=== PATIENT | female | born 1965 | race American Indian/Alaskan Native ===

== ENCOUNTER 2018-02-03 12:20 | Emergency (ER) | payer MEDICAID | END 2018-02-03 12:21 | disposition left against medical advice (07) | LOC: ED 12:20 | DX: N93.9 Abnormal uterine and vaginal bleeding, unspecified (principal); Z53.21 Procedure and treatment not carried out due to patient leaving prior to being seen by health care provider ==

== ENCOUNTER 2018-02-17 12:45 | Emergency (ER) | payer MEDICAID ==
[2018-02-17] MEDS ORDERED: NACL 0.9% 500 ML 500 ML IV ONE (13:38)
[2018-02-17 14:24] LABS: Hematocrit 29.4 % (30.3-42.9); Hemoglobin 9.5 gm/dl (10.1-14.3); Mean Corpuscular HGB Conc 32 % (30-34); Mean Corpuscular Hemoglobin 29 pg (28-32); Mean Corpuscular Volume 91 fl (79-97); Platelet Count 316 K/mm3 (140-440); Red Blood Count 3.25 M/mm3 (3.65-5.03); Red Cell Distribution Width 16.6 % (13.2-15.2)
[2018-02-17 14:27] LABS: Alanine Aminotransferase 20 units/L (7-56); Albumin 1.5 g/dL (3.9-5); BUN/Creatinine Ratio 13; Blood Urea Nitrogen 13 mg/dL (7-17); Calcium 6.7 mg/dL (8.4-10.2); Hemolysis Index 10
[2018-02-17 14:34] LABS: INR 1.08 (0.87-1.13)
[2018-02-17] MEDS ORDERED: ZOFRAN IV ONE (14:57)
[2018-02-17] MEDS ORDERED: SUBLIMAZE IV ONE (14:57)
[2018-02-17] MEDS ORDERED: NACL 0.9% 1000 ML 1,000 ML IV ONE (14:57)
--- NOTE | 2018-02-17 15:11 | Emergency Department Report ---
HPI - General Chief Complaint: Weakness Time Seen by Provider: 02/17/18 14:49 - HPI HPI: Room 6 The patient is a 52-year-old female presenting with a chief complaint of passing stool from her vagina. The patient had a history of a right vulvar abscess status post I&D under general anesthesia by [employer] Dr. Olson 2017. The patient states she's had pain in the area since. The patient states for the past month she has noticed stool coming from her vagina. The patient states she's been unable to contact her [employer] Location: [See above] Duration: One month, see above Quality: Pain Severity: Moderate Modifying factors: [see above] Context: [see above] Mode of transportation: [not driving] ED Past Medical Hx - Past Medical History Hx Liver Disease: Yes Hx Sickle Cell Disease: (trait) Hx HIV: Yes Additional medical history: anemia, esophageal thrush - Surgical History Past Surgical History?: No - Family History Family history: no significant - Social History Smoking Status: Current Every Day Smoker Substance Use Type: None (denies illicit drug use) - Medications Home Medications: Home Medications Medication Instructions Recorded Confirmed Last Taken Type Amoxicillin/Potassium Clav 1 each PO Q12H #14 tablet 12/16/17 Unknown Rx [Augmentin 500-125 Tablet] Fluconazole [Diflucan TAB] 200 mg PO QDAY #12 tablet 12/16/17 Unknown Rx Nystas/Diphen/Xyl Visc/Mylanta 15 ml PO TID 30 Days oral.liqd 12/16/17 Unknown Rx [Magic Mouthwash] oxyCODONE /ACETAMINOPHEN [Percocet 1 tab PO Q4HR #12 tab 12/16/17 Unknown Rx 5/325] Diphenoxylate/Atropine [Lomotil] 2 tab PO QID PRN #10 tablet 02/17/18 Unknown Rx Fluconazole [Diflucan] 200 mg PO QDAY #14 tablet 02/17/18 Unknown Rx metroNIDAZOLE [Flagyl] 500 mg PO Q12HR #14 tab 02/17/18 Unknown Rx traMADol [Ultram] 50 mg PO Q6HR PRN #14 tablet 02/17/18 Unknown Rx ED Review of Systems ROS: Stated complaint: STOOL COMING OUT VAGINA Other details as noted in HPI Genitourinary: discharge Physical Exam - Physical Exam Vital Signs: Vital Signs 02/17/18 13:32 Temperature 98 F Pulse Rate 114 H Respiratory 16 Rate Blood Pressure 90/66 O2 Sat by Pulse 100 Oximetry Physical Exam: GENERAL: The patient is a thin cachectic appearing female lying on stretcher not appearing to be in acute distress HEENT: Normocephalic. Atraumatic. Extraocular motions are intact. Patient has moist mucous membranes. NECK: Supple. No meningitic signs are noted. Trachea midline CHEST/LUNGS: Clear to auscultation. There is no respiratory distress noted. HEART/CARDIOVASCULAR: Regular. There is no tachycardia. There is no gallop rub or murmur. ABDOMEN: Abdomen is soft, nontender. Patient has normal bowel sounds. There is no abdominal distention. SKIN: There is no rash. There is no edema. There is no diaphoresis. NEURO: The patient is awake, alert, and oriented. The patient is cooperative. The patient has normal speech MUSCULOSKELETAL: There is no evidence of acute injury. ED Course Vital Signs 02/17/18 13:32 Temperature 98 F Pulse Rate 114 H Respiratory 16 Rate Blood Pressure 90/66 O2 Sat by Pulse 100 Oximetry - Consultations Consultation #1: 02/17/18 20:21 Dr. Olson paged 02/17/18 20:34 Case discussed with Noni- states patient may follow up with Dr. Olson as an outpatient ED Medical Decision Making - Lab Data Result diagrams: 02/17/18 13:46 02/17/18 13:46 Corrected calcium 8.7 Wet prep-greater than 20% clues cells, no yeast, no Trichomonas - EKG Data -: EKG Interpreted by Dc EKG shows normal: sinus rhythm Rate: tachycardia (102 bpm) - EKG Data When compared to previous EKG there are: previous EKG unavailable Interpretation: nonspecific ST-T wave suzanne (T-wave inversion in lead aVL) - Radiology Data Radiology results: pending (CT abdomen and pelvis read), report reviewed (chest x-ray), image reviewed (chest x-ray, CT abdomen and pelvis) [facility] [address] [place] [address] XRay Report Signed Patient: RAMSEY BARRAZA MR#: [id number] : 1965 Acct:[id number] Age/Sex: 52 / F ADM Date: 02/17/18 Loc: ED Attending Dr: Ordering Physician: TODD TUTTLE MD Date of Service: 02/17/18 Procedure(s): XR chest routine 2V Accession Number(s): [id number] cc: TODD TUTTLE MD Fluoro Time In Minutes: ROUTINE CHEST, TWO VIEWS: HISTORY: Possible sepsis. The trachea, heart, mediastinal contour, lung alonso and bony thorax are unremarkable. IMPRESSION: Unremarkable chest x-ray. Transcribed By: TTR Dictated By: MADHAVI PEPE JR, MD Electronically Authenticated By: MADHAVI PEPE JR, MD Signed Date/Time: 02/17/181522 DD/ 21 TD/TT: 02/17/181522 - Differential Diagnosis rectovaginal fistula, vaginitis Critical care attestation.: If time is entered above; I have spent that time in minutes in the direct care of this critically ill patient, excluding procedure time. ED Disposition Clinical Impression: Thrush, Bacterial vaginosis, Vaginal discharge Disposition: - TO HOME OR SELFCARE Is pt being admited?: No Does the pt Need Aspirin: No Condition: Stable Instructions: Bacterial Vaginosis (ED) Additional Instructions: Return to the emergency department immediately should you develop worsening symptoms, fever, inability to tolerate food or liquid or any other concerns. Prescriptions: Diphenoxylate/Atropine [Lomotil] 2 tab PO QID PRN #10 tablet PRN Reason: Diarrhea Fluconazole [Diflucan] 200 mg PO QDAY #14 tablet metroNIDAZOLE [Flagyl] 500 mg PO Q12HR #14 tab traMADol [Ultram] 50 mg PO Q6HR PRN #14 tablet PRN Reason: Pain Referrals: JOSEFINA OLSON MD [Staff Physician] - 3-5 Days Forms: [facility] Treatment and Prevention
[2018-02-17 15:28] LABS: Basophils % (Manual) 0 % (0.0-1.8); Eosinophils % (Manual) 0 % (0.0-4.3); Platelet Estimate Consistent w Auto; RBC Morphology Normal; Total Cells Counted 100
--- NOTE | 2018-02-17 15:31 | XRay Report ---
ROUTINE CHEST, TWO VIEWS: HISTORY: Possible sepsis. The trachea, heart, mediastinal contour, lung alonso and bony thorax are unremarkable. IMPRESSION: Unremarkable chest x-ray.
[2018-02-17] MEDS ORDERED: TORADOL IV ONE (20:59)
--- NOTE | 2018-02-17 21:17 | Cat Scan Report ---
FINAL REPORT EXAM: CT ABDOMEN PELVIS W CON HISTORY: complaining of passing stool from vagina TECHNIQUE: CT abdomen and pelvis with oral and intravenous contrast PRIORS: None. FINDINGS: No acute abnormality identified in the lung bases. No focal abnormality identified within the liver parenchyma. The spleen demonstrates normal size and attenuation. No pancreatic abnormalities seen. The kidneys demonstrate symmetric contrast enhancement. No evidence of hydronephrosis. The adrenal glands are unremarkable Abdominal aorta is normal in caliber. No pathologically enlarged lymph nodes are identified. No evidence of small bowel dilatation. Colon is nondistended. No pericolonic inflammatory change. Urinary bladder is unremarkable. There are some air collection seen within the vagina this is nonspecific finding but given history could reflect a rectovaginal fistula not clearly identifiable on CT IMPRESSION: Smaller collections within the vagina nonspecific however could reflect rectovaginal fistula
[2018-02-17 22:41] VITALS: BP 110/70
[2018-02-18] MEDS ORDERED: DIFLUCAN PO ONE (20:42)
== END 2018-02-17 22:41 | disposition home or self-care (01) ==
LOC: ED 12:45
DX: N76.0 Acute vaginitis (principal); B96.89 Other specified bacterial agents as the cause of diseases classified elsewhere; B37.3 Candidiasis of vulva and vagina; D57.3 Sickle-cell trait; F17.200 Nicotine dependence, unspecified, uncomplicated
CPT/HCPCS: 36415; 71046; 74177; 80053; 82140; 82805; 85007; 85025; 85610; 87040; 87210; 87591; 93005; 93010; 96361; 96374; 96375; 99285; J1885; J2405; J3010; J7030; Q9967